=== PATIENT | female | born 1985 | race Caucasian/White ===

== ENCOUNTER 2017-02-01 12:58 | Emergency (ER) | payer BC ==
[2017-02-01] MEDS ORDERED: ASPIRIN 81 MG TABLET, CHEWABLE PO ONE (13:20)
--- NOTE | 2017-02-01 13:21 | ER Document Report ---
ED Medical Screen (RME) - General Chief Complaint: Chest Pain Stated Complaint: ARM TINGLING, BACK PAIN Time Seen by Provider: 02/01/17 13:17 TRAVEL OUTSIDE OF THE [place] IN LAST 30 DAYS: No - HPI Notes: 02/01/17 13:20 Left-sided chest pain left arm pain - Related Data Allergies/Adverse Reactions: No Known Allergies Allergy (Unverified 02/01/17 13:09) Past Medical History Renal/ Medical History: Denies: Hx Peritoneal Dialysis Review of Systems - Review of Systems Cardiovascular: Chest pain Physical Exam - Vital signs Vitals: Temp Pulse Resp BP Pulse Ox 98.1 F 92 18 143/83 H 100 02/01/17 13:09 02/01/17 13:09 02/01/17 13:09 02/01/17 13:09 02/01/17 13:09 - Cardiovascular Rhythm: Regular Heart sounds: Normal auscultation Course - Vital Signs Vital signs: Temp Pulse Resp BP Pulse Ox 98.1 F 92 18 143/83 H 100 02/01/17 13:09 02/01/17 13:09 02/01/17 13:09 02/01/17 13:09 02/01/17 13:09
[2017-02-01 13:51] LABS: ABSOLUTE BASOPHILS # (AUTO) 0.1 10^3/uL (0.0-0.2); ABSOLUTE LYMPHOCYTES (AUTO) 2.3 10^3/uL (0.5-4.7); ABSOLUTE MONOCYTES (AUTO) 0.5 10^3/uL (0.1-1.4); ABSOLUTE NEUT (AUTO) 6.3 10^3/uL (1.7-8.2); BASOPHILS % (AUTO) 0.6 % (0-2); EOSINOPHILS % (AUTO) 0.3 % (0-6); HEMATOCRIT 38.6 % (36.0-47.0); HEMOGLOBIN 13.2 g/dL (12.0-15.5); LYMPHOCYTES % (AUTO) 24.9 % (13-45); MEAN CORPUSCULAR HEMOGLOBIN 28.6 pg (27.0-33.4); MEAN CORPUSCULAR HGB CONC 34.2 g/dL (32.0-36.0); MEAN CORPUSCULAR VOLUME 84 fl (80-97); MONOCYTES % (AUTO) 5.9 % (3-13); RED BLOOD COUNT 4.62 10^6/uL (3.72-5.28); RED CELL DISTRIBUTION WIDTH 13.1 % (11.5-14.0); SEGMENTED NEUTROPHILS % (AUTO) 68.3 % (42-78); WHITE BLOOD COUNT 9.3 10^3/uL (4.0-10.5)
[2017-02-01 13:56] LABS: PROTHROMBIN TIME 12.9 SEC (11.4-15.4)
[2017-02-01 14:08] LABS: ALANINE AMINOTRANSFERASE 35 U/L (9-52); ALBUMIN 4.4 g/dL (3.5-5.0); ALKALINE PHOSPHATASE 99 U/L (38-126); ANION GAP 14 (5-19); ASPARTATE AMINO TRANSFERASE 24 U/L (14-36); BILIRUBIN,DIRECT 0.3 mg/dL (0.0-0.4); BILIRUBIN,TOTAL 0.7 mg/dL (0.2-1.3); BLOOD UREA NITROGEN 14 mg/dL (7-20); CALCIUM 9.9 mg/dL (8.4-10.2); CARBON DIOXIDE 26 mmol/L (22-30); CHLORIDE 102 mmol/L (98-107); CREATINE KINASE 106 U/L (30-135); GLUCOSE 103 mg/dL (75-110); SODIUM 141.9 mmol/L (137-145); TOTAL PROTEIN 7.1 g/dL (6.3-8.2)
[2017-02-01] MEDS ORDERED: NITROGLYCERIN 0.4 MG/TAB 25 TAB/BOTTLE SL ONE ×2 (14:11→14:16)
[2017-02-01] MEDS ORDERED: LORAZEPAM 1 MG TABLET PO ONE (14:14)
--- NOTE | 2017-02-01 14:17 | ER Document Report ---
ED Cardiac - General Chief Complaint: Chest Pain Stated Complaint: ARM TINGLING, BACK PAIN Time Seen by Provider: 02/01/17 13:17 Mode of Arrival: Ambulatory Information source: Patient Notes: Patient is a 31-year-old female who presents to the ER today for chest pain radiating up and over her left shoulder causing numbness and tingling in her left arm that occurred approximately an hour before arrival. Patient states that she was at rest when this started. She denies any injury that she knows of. Patient denies any history of any cardiac issues such as blood pressure issues, heart attack, stroke. She is not a smoker. She denies any shortness of breath, nausea or vomiting with this. She does have family history of heart attack and stroke, her grandparents, 60 years or older. TRAVEL OUTSIDE OF THE [place] IN LAST 30 DAYS: No - Related Data Allergies/Adverse Reactions: No Known Allergies Allergy (Unverified 02/01/17 13:09) Home Medications: Current Home Medications Bupropion HCl [Wellbutrin 75 Mg Tablet] 75 mg PO DAILY 02/01/17 [History] Dextroamphetamine/Amphetamine [Adderall 30 mg Tablet] 30 mg PO DAILY 02/01/17 [ History] Past Medical History - General Information source: Patient - Social History Smoking Status: Never Smoker Chew tobacco use (# tins/day): No Frequency of alcohol use: None Drug Abuse: None Family History: Reviewed & Not Pertinent Renal/ Medical History: Denies: Hx Peritoneal Dialysis Psychiatric Medical History: Reports: Hx Attention Deficit Hyperactivity Disorder, Hx Depression Past Surgical History: Reports: Hx Breast Surgery Review of Systems - Review of Systems Constitutional: No symptoms reported EENT: No symptoms reported Cardiovascular: See HPI Respiratory: No symptoms reported Gastrointestinal: No symptoms reported Genitourinary: No symptoms reported Female Genitourinary: No symptoms reported Musculoskeletal: See HPI Skin: No symptoms reported Hematologic/Lymphatic: No symptoms reported Neurological/Psychological: No symptoms reported Physical Exam - Vital signs Vitals: Temp Pulse Resp BP Pulse Ox 98.1 F 92 18 143/83 H 100 02/01/17 13:09 02/01/17 13:09 02/01/17 13:09 02/01/17 13:09 02/01/17 13:09 - Notes Notes: PHYSICAL EXAMINATION: GENERAL: Patient is very tearful, holding left shoulder, in mild acute distress. HEAD: Atraumatic, normocephalic. EYES: Pupils equal round and reactive to light, extraocular movements intact, sclera anicteric, conjunctiva are normal. NECK: Nontender to palpation, normal range of motion, supple without lymphadenopathy LUNGS: CTAB and equal. No wheezes rales or rhonchi. HEART: Chest nontender to palpation, regular rate and rhythm without murmurs ABDOMEN: Soft, no tenderness. No guarding, no rebound BACK: no vertebral tenderness, normal ROM GI/: no CVA tenderness EXTREMITIES: Left trapezius nontender to palpation, left shoulder nontender to palpation, normal range of motion, no pitting edema. No cyanosis. NEUROLOGICAL: Cranial nerves grossly intact. Normal sensory/motor exams. PSYCH: Normal mood, normal affect. SKIN: Warm, Dry, normal turgor, no rashes or lesions noted Course - Re-evaluation Re-evalutation: 02/01/17 18:53 Lab work is unremarkable today including 2 sets of negative cardiac enzymes. Patient received nitroglycerin which made the pain worse, Ativan which did not help, Flexeril which helped a little. At this time patient is still slightly tearful, holding left shoulder but chest x-ray and neck x-ray are negative for any acute pathology, EKG revealed a normal sinus rhythm without any evidence of ischemia. - Vital Signs Vital signs: Temp Pulse Resp BP Pulse Ox 98.1 F 92 18 117/82 100 02/01/17 13:09 02/01/17 13:09 02/01/17 19:31 02/01/17 19:31 02/01/17 19:21 - Laboratory Result Diagrams: 02/01/17 13:27 02/01/17 13:27 Discharge - Discharge Clinical Impression: Chest pain Qualifiers: Chest pain type: unspecified Qualified Code(s): R07.9 - Chest pain, unspecified Left shoulder pain Qualifiers: Chronicity: acute Qualified Code(s): M25.512 - Pain in left shoulder Condition: Stable Disposition: HOME, SELF-CARE Instructions: Chest Pain of Unclear Cause ([facility]) Additional Instructions: Return immediately for any new or worsening symptoms. Follow up with primary care provider, call tomorrow to make followup appointment. Prescriptions: Methocarbamol [Robaxin 500 mg Tablet] 1,000 mg PO BID PRN #40 tablet PRN Reason: Forms: Return to Work Referrals: ANTONELLA SORIANO FNP [Primary Care Provider] - Follow up as needed
[2017-02-01 14:19] LABS: CREATINE KINASE MB 0.42 ng/mL (<4.55)
[2017-02-01 14:25] LABS: TROPONIN I < 0.012 ng/mL
--- NOTE | 2017-02-01 14:25 | RADIOLOGY REPORT (SQ) ---
EXAM DESCRIPTION: CERV SP 3 VIEW OR LESS COMPLETED DATE/TIME: 02/01/2017 1:58 pm REASON FOR STUDY: cp left arm pain COMPARISON: None. NUMBER OF VIEWS: Three views. TECHNIQUE: AP, lateral and odontoid radiographic images acquired of the cervical spine. LIMITATIONS: None. FINDINGS: MINERALIZATION: Normal. ALIGNMENT: Anatomic. VERTEBRAE: Vertebral bodies of normal height. DISCS: No significant disc space narrowing. No large osteophytes. HARDWARE: None in the spine. SOFT TISSUES: No masses or calcifications. Lung apices clear. OTHER: No other significant finding. IMPRESSION: NO SIGNIFICANT RADIOGRAPHIC FINDING IN THE CERVICAL SPINE. TECHNICAL DOCUMENTATION: JOB ID: [id number] [employer]- All Rights Reserved
--- NOTE | 2017-02-01 14:28 | RADIOLOGY REPORT (SQ) ---
EXAM DESCRIPTION: CHEST PA/LAT COMPLETED DATE/TIME: 02/01/2017 1:58 pm REASON FOR STUDY: cp left arm pain COMPARISON: None. EXAM PARAMETERS: NUMBER OF VIEWS: two views TECHNIQUE: Digital Frontal and Lateral radiographic views of the chest acquired. RADIATION DOSE: NA LIMITATIONS: none FINDINGS: LUNGS AND PLEURA: No opacities, masses or pneumothorax. No pleural effusion. MEDIASTINUM AND HILAR STRUCTURES: No masses or contour abnormalities. HEART AND VASCULAR STRUCTURES: Heart normal size. No evidence for failure. BONES: No acute findings. HARDWARE: None in the chest. OTHER: No other significant finding. IMPRESSION: NO SIGNIFICANT RADIOGRAPHIC FINDING IN THE CHEST. TECHNICAL DOCUMENTATION: JOB ID: [id number] [employer]- All Rights Reserved
[2017-02-01] MEDS ORDERED: CYCLOBENZAPRINE HCL 10 MG TABLET PO ONE (15:21)
[2017-02-01] MEDS ORDERED: HYDROMORPHONE HCL INJ/PF 2 MG/ML AMPULE IV ONE (18:30)
[2017-02-01] MEDS ORDERED: HYDROMORPHONE HCL INJ/PF 2 MG/ML AMPULE IM ONE (19:08)
[2017-02-01 19:34] VITALS: BP 117/82
--- NOTE | 2017-02-02 10:36 | EKG REPORT ---
SEVERITY:- OTHERWISE NORMAL ECG - SINUS RHYTHM BORDERLINE LEFT AXIS DEVIATION : Confirmed by: German Mulligan 02-Feb-2017 10:35:33
== END 2017-02-01 19:30 | disposition home or self-care (01) ==
LOC: ER 12:58
DX: R07.9 Chest pain, unspecified (principal); M25.512 Pain in left shoulder; R20.0 Anesthesia of skin; R20.2 Paresthesia of skin; Z82.49 Family history of ischemic heart disease and other diseases of the circulatory system; Z82.3 Family history of stroke
CPT/HCPCS: 93005; 99285; 96372; 36415; 82553; 82550; 85025; 85610; 80053; 84484; 72040; 71020; 93010; J1170

== ENCOUNTER 2017-07-05 06:53 | Emergency (ER) | payer BC ==
--- NOTE | 2017-07-05 07:40 | ER Document Report ---
ED General - General Chief Complaint: Epigastric Pain Stated Complaint: ABDOMINAL PAIN Time Seen by Provider: 07/05/17 07:15 Mode of Arrival: Ambulatory Information source: Patient TRAVEL OUTSIDE OF THE [place] IN LAST 30 DAYS: No - HPI Notes: 32-year-old female presents today with complaints of epigastric abdominal pain, right upper quadrant and left lower quadrant pain that started approximately 5 days ago. Patient was seen by her primary care provider, assess for to flu, which was negative. Given a prescription for Phenergan. patient states that she has been getting progressively worse. Denies any diarrhea, reports nausea and vomiting. Worse with time, nothing makes better. Patient reports she has had a history of cholelithiasis. denies any new foods, medications or travel. Denies . Patient states she has been trying to keep some fluids down has not been eating. Denies fevers, chills, chest pain,palpitations, shortness of breath, dyspnea, diarrhea, hematuria,blurred vision, double vision , loss of vision, speech changes, LH, dizziness, syncope, headaches, wheezing, ST, URI, neck pain, weakness, bowel or bladder dysfunction, saddle anesthesia, numbness or tingling in bilateral upper or lower extremities equally, muscle paralysis, weakness in bilateral upper or lower extremities equally or rash. Denies IV drug use. - Related Data Allergies/Adverse Reactions: No Known Allergies Allergy (Verified 07/05/17 06:54) Past Medical History - General Information source: Patient - Social History Smoking Status: Never Smoker Chew tobacco use (# tins/day): No Frequency of alcohol use: None Drug Abuse: None Family History: Reviewed & Not Pertinent Patient has suicidal ideation: No Patient has homicidal ideation: No Renal/ Medical History: Denies: Hx Peritoneal Dialysis Psychiatric Medical History: Reports: Hx Attention Deficit Hyperactivity Disorder, Hx Depression Past Surgical History: Reports: Hx Breast Surgery Review of Systems - Review of Systems Notes: REVIEW OF SYSTEMS: CONSTITUTIONAL : Denies fever, chills, or sweats. Denies recent illness. EENT: Denies eye, ear, throat, or mouth pain or symptoms. Denies nasal or sinus congestion or discharge. Denies throat, tongue, or mouth swelling or difficulty swallowing. CARDIOVASCULAR: Denies chest pain. Denies palpitations or racing or irregular heart beat. Denies ankle edema. RESPIRATORY: Denies cough, cold, or chest congestion. Denies shortness of breath, difficulty breathing, or wheezing. GASTROINTESTINAL: reports abdominal pain or distention. reports nausea, vomiting. Denies diarrhea. Denies blood in vomitus, stools, or per rectum. Denies black, tarry stools. Denies constipation. GENITOURINARY: Denies difficulty urinating, painful urination, burning, frequency, blood in urine, or discharge. FEMALE GENITOURINARY: Denies vaginal bleeding, heavy or abnormal periods, irregular periods. Denies vaginal discharge or odor. MUSCULOSKELETAL: Denies back or neck pain or stiffness. Denies joint pain or swelling. SKIN: Denies rash, lesions or sores. HEMATOLOGIC : Denies easy bruising or bleeding. LYMPHATIC: Denies swollen, enlarged glands. NEUROLOGICAL: Denies confusion or altered mental status. Denies passing out or loss of consciousness. Denies dizziness or lightheadedness. Denies headache. Denies weakness or paralysis or loss of use of either side. Denies problems with gait or speech. Denies sensory loss, numbness, or tingling. Denies seizures. PSYCHIATRIC: Denies anxiety or stress. Denies depression, suicidal ideation, or homicidal ideation. ALL OTHER SYSTEMS REVIEWED AND NEGATIVE. PHYSICAL EXAMINATION: GENERAL: Well-appearing, well-nourished and in no acute distress. HEAD: Atraumatic, normocephalic. EYES: Pupils equal round and reactive to light, extraocular movements intact, conjunctiva are normal. ENT: Nares patent, oropharynx clear without exudates. Moist mucous membranes. NECK: Normal range of motion, supple without lymphadenopathy LUNGS: Breath sounds clear to auscultation bilaterally and equal. No wheezes rales or rhonchi. HEART: Regular rate and rhythm without murmurs ABDOMEN: Soft, nondistended abdomen. Right upper quadrant tenderness on palpation without rebound, left lower quadrant tenderness with rebound. Noted epigastric pain tenderness without rebound. No CVA tenderness appreciated bilaterally. No guarding, no rebound. No masses appreciated. Female : deferred Musculoskeletal: Normal range of motion, no pitting or edema. No cyanosis. NEUROLOGICAL: Cranial nerves grossly intact. Normal speech, normal gait. Normal sensory, motor exams PSYCH: Normal mood, normal affect. SKIN: Warm, Dry, normal turgor, no rashes or lesions noted. Dictation was performed using Dragon voice recognition software Physical Exam - Vital signs Vitals: Temp Pulse Resp BP Pulse Ox 98.0 F 81 16 132/96 H 98 07/05/17 06:58 07/05/17 06:58 07/05/17 06:58 07/05/17 06:58 07/05/17 06:58 Course - Re-evaluation Re-evalutation: Healthy, afebrile 32-year-old female presents today with epigastric, right upper quadrant and left lower quadrant pain that has been occurring for the last 5 days. GI cocktail given, patient states that she felt much better after the GI cocktail. CBC negative for leukocytosis and anemia. CMP unremarkable. Cardiac enzymes normal. EKG negative for STEMI. Urinalysis shows patient has a UTI. Patient remained stable, afebrile not in any distress. CT abdomen pelvis with IV and oral contrast negative for any acute etiologies per radiology. Discussed with patient that she does have a UTI, advised starting on protein pump inhibitor due to having epigastric pain and she did find relief with GI cocktail. Follow-up with game designer within 1 week. Avoid spicy foods, follow a bland diet. Take antibiotic for UTI, increase oral hydration. Advised her to also rehydrate with Pedialyte. Advised patient to follow with her primary care doctor tomorrow. She denies any worsening abdominal pain, nausea vomiting, fevers to the emergency room is small. Patient has been verbalized. Patient was discharged home with strict instructions to return for worsening abdominal pain. After performing a Medical Screening Examination, I estimate there is LOW risk for ACUTE APPENDICITIS, BOWEL OBSTRUCTION, ACUTE CHOLECYSTITIS, PERFORATED DIVERTICULITIS, INCARCERATED HERNIA, PANCREATITIS, PELVIC INFLAMMATORY DISEASE, PERFORATED ULCER, ECTOPIC , or TUBO-OVARIAN ABSCESS, thus I consider the discharge disposition reasonable. Also, there is no evidence or peritonitis , sepsis, or toxicity. I have reevaluated this patient multiple times and no significant life threatening changes are noted. The patient and I have discussed the diagnosis and risks, and we agree with discharging home with close follow-up with the understanding that symptoms and presentations can change. We also discussed returning to the Emergency Department immediately if new or worsening symptoms occur. We have discussed the symptoms which are most concerning (e.g., bloody stool, fever, changing or worsening pain, vomiting) that necessitate immediate return. - Vital Signs Vital signs: Temp Pulse Resp BP Pulse Ox 98.4 F 89 16 115/80 99 07/05/17 15:09 07/05/17 15:09 07/05/17 06:58 07/05/17 15:09 07/05/17 15:09 - Laboratory Result Diagrams: 07/05/17 08:00 07/05/17 08:00 Laboratory results interpreted by me: 07/05/17 07/05/17 08:00 10:07 Carbon Dioxide 32 H Urine Ketones 100 H Ur Leukocyte Esterase TRACE H Discharge - Discharge Clinical Impression: Epigastric abdominal pain, UTI (urinary tract infection) Nausea and vomiting Qualifiers: Vomiting type: unspecified Vomiting Intractability: intractable Qualified Code( s): R11.2 - Nausea with vomiting, unspecified Condition: Good Disposition: HOME, SELF-CARE Instructions: Abdominal Pain ([facility]), Antinausea Medication ([facility]), Urinary Tract Infection ([facility]), Vomiting ([facility]) Additional Instructions: Abdominal Pain There are many causes of abdominal pain. Pain can mean a serious problem requiring surgery (such as appendicitis). It can also be an innocent problem that goes away on its own (such as a viral infection). Often, time must pass to determine the cause of pain. The physician does not feel that hospitalization is necessary, at present. Things may change within the next 24 hours. Call the doctor or come back for re- examination if any problems occur, such as: (1) Pain that becomes more severe, steady, or becomes concentrated in one specific area. Also, pain that is more severe with movement or coughing. (2) Vomiting that persists or becomes more frequent. (3) Blood in the vomitus, urine, or bowel movements. Blood in the stool may have a tarry or black appearance. (4) Shaking chills or fever greater than 100 degrees F. (5) The abdomen becomes more distended or swollen. (6) Bowel movements cease. (7) Failure to improve as expected. Urinary Tract Infection Your evaluation indicates that you have a urinary tract infection. This is due to germs growing in the bladder. This is a common problem. This infection usually responds quickly to antibiotics. Your antibiotic should be taken exactly as prescribed. Drink plenty of fluids -- three to four quarts a day. Occasionally, a bladder anesthetic will be prescribed to help stop the feeling of urgency until the antibiotic has a chance to clear the infection. This may cause your urine to be dark orange. Certain urine infections require a culture. If the doctor obtained a culture, the results will be back in two days. You should call to see if a change in treatment is needed. A repeat urinalysis after you finish treatment is often recommended. The physician will let you know if further testing is required. Call the doctor if you develop fever, chills, flank pain, inability to urinate, or blood in the urine. Follow-up with game designer within 3 days. Follow a bland diet. Take antibiotic as directed for UTI. Start protein pump inhibitors for epigastric pain. Continue diabetic medications. Follow-up with primary care provider tomorrow. Return to the emergency room if you experience any worsening abdominal pain, nausea, vomiting, fever, lethargy, etc. Return immediately for any new or worsening symptoms. Follow up with primary care provider, call tomorrow to make followup appointment. Prescriptions: Nitrofurantoin Monohyd/M-Cryst [Macrobid 100 mg Capsule] 1 tab PO BID #20 capsule Omeprazole 20 mg PO DAILY #30 tablet.dr Forms: Return to Work Referrals: MATT BROWN DO [NO LOCAL MD] - Follow up as needed NICCI VITALE MD [ACTIVE STAFF] - Follow up in 3-5 days
[2017-07-05] MEDS ORDERED: NORMAL SALINE 1000 ML 1,000 ML IV ONE (07:41)
[2017-07-05] MEDS ORDERED: ONDANSETRON HCL INJ/PF 4 MG/2 ML SDV IV ONE (07:41)
[2017-07-05] MEDS ORDERED: LIDOCAINE 2% VISCOUS SOLN 20 ML UDCUP PO ONE (07:42)
[2017-07-05] MEDS ORDERED: METOCLOPRAMIDE HCL ORAL SOLN 10 MG/10 ML UDCUP PO ONE (07:42)
[2017-07-05] MEDS ORDERED: MAG HYDROX/AL HYDROX/SIMETH SUSP 30 ML UDCUP PO ONE (07:42)
[2017-07-05 08:17] LABS: ABSOLUTE LYMPHOCYTES (AUTO) 1.8 10^3/uL (0.5-4.7); ABSOLUTE MONOCYTES (AUTO) 0.6 10^3/uL (0.1-1.4); ABSOLUTE NEUT (AUTO) 4.8 10^3/uL (1.7-8.2); BASOPHILS % (AUTO) 0.6 % (0-2); EOSINOPHILS % (AUTO) 0.4 % (0-6); HEMATOCRIT 40.1 % (36.0-47.0); HEMOGLOBIN 13.6 g/dL (12.0-15.5); LYMPHOCYTES % (AUTO) 24.2 % (13-45); MEAN CORPUSCULAR HEMOGLOBIN 28.3 pg (27.0-33.4); MEAN CORPUSCULAR VOLUME 83 fl (80-97); MONOCYTES % (AUTO) 8.1 % (3-13); PLATELET COUNT 415 10^3/uL (150-450); RED BLOOD COUNT 4.82 10^6/uL (3.72-5.28); RED CELL DISTRIBUTION WIDTH 12.9 % (11.5-14.0); SEGMENTED NEUTROPHILS % (AUTO) 66.7 % (42-78); TOTAL CELLS COUNTED % (AUTO) 100 %; WHITE BLOOD COUNT 7.3 10^3/uL (4.0-10.5)
[2017-07-05 08:30] LABS: ALANINE AMINOTRANSFERASE 32 U/L (9-52); ALBUMIN 4.4 g/dL (3.5-5.0); ALKALINE PHOSPHATASE 82 U/L (38-126); ANION GAP 9 (5-19); ASPARTATE AMINO TRANSFERASE 22 U/L (14-36); BILIRUBIN,DIRECT 0.1 mg/dL (0.0-0.4); BILIRUBIN,TOTAL 0.3 mg/dL (0.2-1.3); BLOOD UREA NITROGEN 16 mg/dL (7-20); CALCIUM 9.9 mg/dL (8.4-10.2); CARBON DIOXIDE 32 mmol/L (22-30); CHLORIDE 98 mmol/L (98-107); CREATINE KINASE 77 U/L (30-135); GLUCOSE 107 mg/dL (75-110); LIPASE 44.9 U/L (23-300); POTASSIUM 4.2 mmol/L (3.6-5.0); SODIUM 139.2 mmol/L (137-145); TOTAL PROTEIN 6.9 g/dL (6.3-8.2)
[2017-07-05 08:58] LABS: CREATINE KINASE MB 0.43 ng/mL (<4.55)
[2017-07-05 08:59] LABS: TROPONIN I < 0.012 ng/mL
[2017-07-05 10:41] LABS: APPEARANCE,URINE CLEAR; BILIRUBIN,URINE NEGATIVE (NEGATIVE); COLOR,URINE YELLOW; GLUCOSE, URINE NEGATIVE (NEGATIVE); KETONES,URINE 100 mg/dL (NEGATIVE); NITRITE,URINE NEGATIVE (NEGATIVE); PROTEIN,URINE NEGATIVE (NEGATIVE); UROBILINOGEN,URINE NEGATIVE mg/dL (<2.0)
[2017-07-05 10:42] LABS: LEUKOCYTE ESTERASE,URINE TRACE (NEGATIVE)
[2017-07-05] MEDS ORDERED: NORMAL SALINE 1000 ML 1,000 ML IV PRN (11:08)
[2017-07-05] MEDS ORDERED: PROCHLORPERAZINE EDISYLATE INJ 10 MG/2 ML VIAL IV ONE (11:12)
[2017-07-05] MEDS ORDERED: DIPHENHYDRAMINE HCL 50 MG/ML VIAL IV ONE (13:04)
--- NOTE | 2017-07-05 13:09 | EKG REPORT ---
SEVERITY:- BORDERLINE ECG - SINUS RHYTHM BORDERLINE T ABNORMALITIES, ANT-LAT LEADS : Confirmed by: Tommie Contreras MD 05-Jul-2017 13:08:32
--- NOTE | 2017-07-05 13:19 | RADIOLOGY REPORT (SQ) ---
EXAM DESCRIPTION: CT ABD/PELVIS WITH IV ORAL COMPLETED DATE/TIME: 07/05/2017 12:54 pm REASON FOR STUDY: LLQ, RUQ and epigastric pain with n/v x 5 days COMPARISON: None. TECHNIQUE: CT scan of the abdomen and pelvis performed using helical scanning technique with dynamic intravenous contrast injection. No oral contrast. Images reviewed with lung, soft tissue, and bone windows. Reconstructed coronal and sagittal MPR images reviewed. Delayed images for evaluation of the urinary system also acquired. All images stored on PACS. All CT scanners at this facility use dose modulation, iterative reconstruction, and/or weight based d osing when appropriate to reduce radiation dose to as low as reasonably achievable (ALARA). [facility]: Dose Right [facility]: CareDose [facility]: Dose Right [facility]: Teradose 4D [facility]: Sprout CONTRAST TYPE AND DOSE: contrast/concentration: Isovue 370.00 mg/ml; Total Contrast Delivered: 84.0 ml; Total Saline Delivered: 69.0 ml RENAL FUNCTION: GFR > 60. RADIATION DOSE: CT Rad equipment meets quality standard of care and radiation dose reduction techniq ues were employed. CTDIvol: 9.5 - 12.3 mGy. DLP: 1078 mGy-cm.. LIMITATIONS: None. FINDINGS: LOWER CHEST: No significant findings. No nodules or infiltrates. LIVER: There are 2 subcentimeter lesions that are too small to characterize. There are 2 larger low- density lesions, the largest near the gallbladder fossa measuring about 1.5 cm. Less perceptible on delayed images. SPLEEN: Normal size. No focal lesions. PANCREAS: No masses. No significant calcifications. No adjacent inflammation or peripancreatic fluid collections. Pancreatic duct not dilated. GALLBLADDER: No identified stones by CT criteria. No inflammatory changes to suggest cholecystitis. ADRENAL GLANDS: No significant masses or asymmetry. RIGHT KIDNEY AND URETER: No solid masses. No significant calcifications. No hydronephrosis or hyd roureter. LEFT KIDNEY AND URETER: No solid masses. No significant calcifications. No hydronephrosis or hydr oureter. AORTA AND VESSELS: No aneurysm. No dissection. Renal arteries, SMA, celiac without stenosis. RETROPERITONEUM: No retroperitoneal adenopathy, hemorrhage or masses. BOWEL AND PERITONEAL CAVITY: No masses or inflammatory changes. No free fluid or peritoneal masses. APPENDIX: Normal. PELVIS: No mass. No free fluid. Normal bladder. ABDOMINAL WALL: No masses. No hernias. BONES: No significant or acute findings. OTHER: No other significant finding. IMPRESSION: 1. No acute findings. No explanation for right upper quadrant pain. 2. Small liver lesions, most likely benign cysts and hemangiomas. Consider follow-up dedicated MRI t o exclude other etiologies. TECHNICAL DOCUMENTATION: JOB ID: [id number] Quality ID # [id number]: Final reports with documentation of one or more dose reduction techniques (e.g., Au tomated exposure control, adjustment of the mA and/or kV according to patient size, use of iterative reconstruction technique) 2010 [employer]- All Rights Reserved Reading location - IP/workstation name: [email or web address]
[2017-07-05 15:10] VITALS: BP 115/80
== END 2017-07-05 15:10 | disposition home or self-care (01) ==
LOC: ER 06:53
DX: N39.0 Urinary tract infection, site not specified (principal); R10.13 Epigastric pain; R10.11 Right upper quadrant pain; R10.32 Left lower quadrant pain; R11.2 Nausea with vomiting, unspecified; Z87.19 Personal history of other diseases of the digestive system
CPT/HCPCS: 93005; 99285; 96361; 96374; 96375; 36415; 87086; 82553; 82550; 83605; 83690; 85025; 81025; 87088; 80053; 81001; 84484; 74177; 93010; J1200; J3490; J0780; J2405; J7030